=== PATIENT | male | born 1990 | race Caucasian/White ===

== ENCOUNTER → 2016-05-28 | Outpatient (CLI) | payer OTHER ==
[~2016-05-28] MED LIST: EPP3/2 IM; PRED20TA2 PO; RANI150T3 PO
--- NOTE | 2016-05-28 15:49 | DIAGNOSTIC IMAGING REPORT ---
MRI LUMBAR SPINE W/O CONTRAST CLINICAL HISTORY: Back pain with right leg radiculopathy. TECHNIQUE: Sagittal and axial T1, T2 and STIR images were obtained. COMPARISON STUDY: No previous studies for comparison. OBSERVATIONS: The vertebral bodies and posterior elements appear intact. There is no abnormal bony signal present to suggest a marrow replacement process. L1-2: No disc protrusions or extrusions. No evidence of spinal canal or neural foraminal compromise. L2-3: No disc protrusions or extrusions. No evidence of spinal canal or neural foraminal compromise. L3-4: No disc protrusions or extrusions. No evidence of spinal canal or neural foraminal compromise. L4-5: There is a large "snowman" shaped central disc extrusion with marked deformity of the thecal sac. The disc measures 12 x 15 mm. L5-S1: No disc protrusions or extrusions. No evidence of spinal canal or neural foraminal compromise. The conus medullaris and cauda equina appear normal. IMPRESSION: Large bilobed central disc extrusion at the L4-5 level with marked secondary deformity of the thecal sac. Electronically signed by: Guanako Orozco M.D. 05/28/2016 3:48 PM Dictated Date/Time: 05/28/2016 3:44 PM
== END | disposition home or self-care (01) ==
LOC: C.MRI 14:57
PROVIDERS: ATTEND Family Medicine
DX: M51.26 Other intervertebral disc displacement, lumbar region (principal)

== ENCOUNTER 2016-10-15 22:19 | Emergency (ER) | payer OTHER ==
[~2016-10-15] VITALS: Ht 182.9 cm; Wt 109.6 kg
[2016-10-15 22:22] VITALS: TEMP 36.6; Ht 182.9 cm; Wt 109.6 kg
[2016-10-15] MEDS ORDERED: METHYLPREDNISOLONE 125 MG VIAL IV STA (22:42)
[2016-10-15] MEDS ORDERED: RANITIDINE HCL 50 MG/100 ML D5W IV STA (22:42)
[2016-10-15] MEDS ORDERED: SODIUM CHLORIDE 0.9% 1000ML 1,000 ML IV STA (22:42)
[2016-10-15] MEDS ORDERED: DiphenhydrAMINE HCL 50 MG/ML VIAL IV STA (22:42)
--- NOTE | 2016-10-15 22:48 | EMERGENCY ROOM VISIT NOTE ---
History Report prepared by Radha: Franchesca Garcia Under the Supervision of: Dr. Luis Carlos Lock M.D. 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 The patient states that he ate strawberries tonight and following eating he started to feel his throat was scratchy. He reports that his voice became rough and he feels like his uvula is touching the back of his throat. The patient denies any previous known allergy to strawberries. He states that he did not take any medications prior to the reaction but did take Claritin just afterwards. Source of History: patient Onset: just RETIREMENT ASSISTANT Position: other (global) Quality: other (allergic reaction) Timing: constant Note: Pt complains of throat scratchiness and voice roughness. Review of Systems See HPI for pertinent positives & negatives. A total of 10 systems reviewed and were otherwise negative. Past Medical & Surgical Medical Problems: (1) No Known Active Medical Problems Family History No pertinent family history stated. 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 Current/Historical Medications Scheduled Epinephrine (Epipen), 0.3 MG IM UD Prednisone (Prednisone Tab), 0 PO DAILY Ranitidine Hcl (Zantac), 150 MG PO BID Allergies Coded Allergies: Azithromycin (Verified Allergy, Intermediate, Hives, 10/15/16) Bayard (Verified Allergy, Intermediate, Tightness of throat, raspy voice, 10/15/16) Physical Exam Vital Signs Date Time Temp Pulse Resp B/P (MAP) Pulse Ox O2 Delivery O2 Flow Rate FiO2 10/16/16 00:17 84 18 124/63 96 Room Air 10/15/16 23:08 80 18 134/79 97 Room Air 10/15/16 22:22 36.6 71 18 133/85 96 Room Air Physical Exam GENERAL: Patient is a healthy-appearing well-nourished [] HEAD: Normocephalic atraumatic EYES: Ocular movements intact pupils equal and react to light OROPHARYNX mucous membranes are moist no exudates present no erythema or edema present NECK: Supple no nuchal rigidity CHEST: Good equal expansion LUNGS: Stridor and wheezing present on the left CARDIAC: Normal S1 and S2 ABDOMEN: Soft nontender no guarding BACK: No CVA tenderness EXTREMITIES: No pain upon palpation normal muscle strength in all groups no clubbing cyanosis or edema NEURO: Patient is following commands and answering questions appropriately. Alert and oriented x3 Cranial Nerves 2-12 grossly intact Medical Decision & Procedures Medications Administered Medications (Trade) Dose Ordered Sig/Kush Route Start Time Stop Time Status Last Admin Dose Admin Sodium Chloride 1,000 ml @ 999 mls/hr Q1H1M STAT IV 10/15/16 22:42 10/15/16 23:42 DC 10/15/16 23:05 999 MLS/HR Methylprednisolone Sodium Succinate (Solu-Medrol IV) 125 mg NOW STAT IV 10/15/16 22:42 10/15/16 22:43 DC 10/15/16 23:04 125 MG Ranitidine HCl (zANTac IV) 50 mg NOW STAT IV 10/15/16 22:42 10/15/16 22:43 DC 10/15/16 23:05 50 MG Diphenhydramine HCl (Benadryl Inj) 50 mg NOW STAT IV 10/15/16 22:42 10/15/16 22:43 DC 10/15/16 23:04 50 MG ED Course 8: Past medical records reviewed. The patient was evaluated in room A2. A complete history and physical examination was performed. 2: Benadryl Inj 50mg IV, Zantac IV 50mg IV, Solu-Medrol IV 125mg IV, Sodium Chloride 1000 ml @ 999 mls/hr IV. Medical Decision Differential diagnosis: Etiologies such as allergic reaction, anaphylaxis, urticaria, Fofana-Kris syndrome, toxic epidermal necrolysis, erythema multiforme, cellulitis, as well as others were entertained. Medication Reconciliation: I attest that I have personally reviewed the patient' s current medication list Blood Pressure Screening: Patient was found to have an elevated blood pressure and was referred to their primary care doctor for recheck and further treatment This is a 26-year-old male who presents emergency department complaining of allergic reaction. The patient was eating strawberries this evening and has never had a reaction like this before. He is complaining of swollen uvula. I will note the patient denies taking any ibuprofen or grady inhibitors. An IV was established, patient given normal saline bolus, Benadryl, Solu-Medrol, Zantac. Repeat examination revealed improvement patient's symptoms. I will place the patient on a prednisone taper along with Zantac and stressed the need for follow -up with primary care physician. Patient was in agreement with the treatment plan. Impression Primary Impression: Allergic reaction Scribe Attestation The scribe's documentation has been prepared under my direction and personally reviewed by me in its entirety. I confirm that the note above accurately reflects all work, treatment, procedures, and medical decision making performed by me. Departure Information Dispostion Home / Self-Care Prescriptions Epinephrine (EPIPEN) 0.3 Mg/0.3 Ml Inj 0.3 MG IM UD, #2 BOX Prov: Luis Carlos Lock MD 10/15/16 Ranitidine Hcl (ZANTAC) 150 Mg Tab 150 MG PO BID for 5 Days, #10 TAB Prov: Luis Carlos Lock MD 10/15/16 Prednisone (Prednisone Tab) 20 Mg Tab 0 PO DAILY, #7 TAB 2 TABS DAILY FOR 2 DAYS, THEN 1 TAB DAILY FOR 2 DAYS, THEN 1/2 TAB DAILY FOR 2 DAYS. Prov: Luis Carlos Lock MD 10/15/16 Referrals No Doctor, Assigned (PCP) Patient Instructions [facility] Problem Qualifiers Primary Impression: Allergic reaction Encounter type: initial encounter Qualified Codes: T78.40XA - Allergy, unspecified, initial encounter
[2016-10-15] MEDS ORDERED: PRED20TA2 PO (23:46)
[2016-10-15] MEDS ORDERED: RANI150T3 PO (23:46)
[2016-10-15] MEDS ORDERED: EPP3/2 IM (23:47)
[2016-10-16 00:17] VITALS: BP 124/63; PULSE 84; O2SAT 96
== END 2016-10-16 00:19 | disposition home or self-care (01) ==
LOC: C.EDB 22:20 → C.EDA 10-16 00:19
DX: T78.40XA Allergy, unspecified, initial encounter (principal); X58.XXXA Exposure to other specified factors, initial encounter; Z91.018 Allergy to other foods

== ENCOUNTER → 2017-01-05 | Outpatient (CLI) | payer OTHER ==
[~2017-01-05] MED LIST changes: -RANI150T3 PO
== END | disposition home or self-care (01) ==
LOC: C.LAB1850 12:47
PROVIDERS: ATTEND Internal Medicine Pulmonary Disease
DX: Z91.018 Allergy to other foods (principal)